=== PATIENT | male | born 1965 | race Caucasian/White ===

== ENCOUNTER → 2020-05-08 | Outpatient (CLI) | payer OTHER ==
--- NOTE | 2020-05-08 16:37 | XR ---
EXAMINATION TYPE: XR lumbar spine with bend/flex DATE OF EXAM: 05/08/2020 CLINICAL HISTORY: Chronic lower back pain. TECHNIQUE: Frontal, lateral neutral/extension/flexion, and oblique images of the lumbar spine are obt ained. COMPARISON: None FINDINGS: There are 5 lumbar type vertebral bodies identified. The lumbar spine shows satisfactory alignment without evidence of acute fracture or dislocation. Vertebral body heights are within normal limits. There is mild disc space narrowing at L4-5 and moderate disc space narrowing at L5-S1. Anter ior osteophytic spurring worst at L5-S1. Multilevel bilateral facet arthropathy, worst at the inferio r lumbar spine. No evidence of spondylolysis or spondylolisthesis. The overlying soft tissue appears unremarkable. 2 mm calcific density paramidline to the left of the L1-2 interspace. IMPRESSION: 1. Multilevel degenerative disc disease and facet arthropathy. 2. No evidence of spondylolisthesis in neutral, flexion, or extension views. No evidence of fracture or subluxation. 3. Left 2 mm calcific density may represent nephrolithiasis.
== END | disposition home or self-care (01) ==
LOC: RADXRYALE 08:54
PROVIDERS: ATTEND Psychiatry & Neurology Pain Medicine
DX: M51.36 Other intervertebral disc degeneration, lumbar region (principal); M47.816 Spondylosis without myelopathy or radiculopathy, lumbar region
CPT/HCPCS: 72114

== ENCOUNTER → 2021-05-13 | Outpatient (CLI) | payer OTHER ==
--- NOTE | 2021-05-14 04:43 | MR ---
EXAMINATION TYPE: MR knee RT wo con DATE OF EXAM: 05/13/2021 COMPARISON: None HISTORY: Tear of medial meniscus, right knee giving out, clicking, pain Multiplanar multiecho imaging of the right knee without contrast. The anterior and posterior cruciate ligaments are intact. There is large horizontal tear through the posterior horn of the medial meniscus. There is oblique vertical tear through the posterior horn of t he lateral meniscus. There is small intrasubstance tear of the anterior horn lateral meniscus. The patella tendon is intact. There is mild knee joint effusion. There is subcutaneous edema over the anterior knee. The patella is intact. The collateral ligaments appear intact. I see no focal bone de struction. IMPRESSION: No evidence of ligamentous tear. There are moderate-sized tears involving the posterior horn medial meniscus and posterior horn of the lateral meniscus. Knee joint effusion. No fracture.
== END | disposition home or self-care (01) ==
LOC: RADMRIMAIN 07:10
PROVIDERS: ATTEND Orthopaedic Surgery
DX: M23.321 Other meniscus derangements, posterior horn of medial meniscus, right knee (principal); M23.351 Other meniscus derangements, posterior horn of lateral meniscus, right knee

== ENCOUNTER 2021-08-04 14:57 | Emergency (ER) | payer OTHER ==
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
[2021-08-04] MEDS ORDERED: HYDROmorphone 0.5 MG/0.5 ML SYRINGE IVP STA (15:33)
[2021-08-04] MEDS ORDERED: SODIUM CHLORIDE 0.9% 1,000 ML IV STA (15:33)
[2021-08-04] MEDS ORDERED: DIPH,PERTUS(ACELL)TETVAC-LF 0.5 ML VIAL IM ONE (15:33)
[2021-08-04 15:58] LABS: Basophils % (A) 0 %; Eosinophils # (A) 0.1 k/uL (0-0.7); Eosinophils % (A) 1 %; HCT 47.6 % (39.0-53.0); HGB 16.2 gm/dL (13.0-17.5); Lymphocytes # (A) 1.2 k/uL (1.0-4.8); Lymphocytes % (A) 9 %; MCH 30.9 pg (25.0-35.0); MCHC 34.1 g/dL (31.0-37.0); MCV 90.6 fL (80.0-100.0); Mean Platelet Volume 6.7; Monocytes # (A) 0.5 k/uL (0-1.0); Monocytes % (A) 4 %; Neutrophils # (A) 10.4 k/uL (1.3-7.7); Neutrophils % (A) 84 %; Platelet Count 239 k/uL (150-450); RBC 5.25 m/uL (4.30-5.90); RDW 13.3 % (11.5-15.5); WBC 12.4 k/uL (3.8-10.6)
[2021-08-04 16:01] LABS: Appearance,Urine Clear (Clear); Bilirubin,Urine Negative (Negative); Blood,Urine Small (Negative); Color,Urine Light Yellow; Glucose,Urine (UA) Negative (Negative); Ketones,Urine Negative (Negative); Leukocyte Esterase,Urine Negative (Negative); Mucus,Urine Rare /hpf; Nitrite,Urine Negative (Negative); PH, Urine 5.5 (5.0-8.0); Protein,Urine Trace (Negative); RBC,Urine <1 /hpf (0-5); Specific Gravity,Urine 1.003 (1.001-1.035); Urobilinogen,Urine <2.0 mg/dL (<2.0); WBC,Urine 2 /hpf (0-5)
[2021-08-04 16:10] LABS: Amphetamine Screen,Urine Not Detected (NotDetected); Barbiturate Screen,Urine Not Detected (NotDetected); Benzodiazepines Screen,Urine Not Detected (NotDetected); Cocaine Screen,Urine Not Detected (NotDetected); Methadone Screen, Urine Not Detected (NotDetected); Opiate Screen,Urine Not Detected (NotDetected); Oxycodone Screen, Urine Not Detected (NotDetected); Phencyclidine Screen,Urine Not Detected (NotDetected); Tricyclic Antidepressant,Urine Not Detected (NotDetected); Urn Cannabinoid Scrn Not Detected (NotDetected)
[2021-08-04 16:14] LABS: ALT 24 U/L (4-49); AST 45 U/L (17-59); African American GFR (CKD) >90 (>60 ml/min/1.73 sqM); Albumin 3.6 g/dL (3.5-5.0); Alkaline Phosphatase 127 U/L (38-126); Anion Gap 13 mmol/L; Blood Urea Nitrogen 11 mg/dL (9-20); Calcium 8.4 mg/dL (8.4-10.2); Carbon Dioxide 16 mmol/L (22-30); Chloride 103 mmol/L (98-107); Glucose 97 mg/dL (74-99); Magnesium 1.9 mg/dL (1.6-2.3); Non-African American GFR(CKD) 87 (>60 ml/min/1.73 sqM); Potassium 4.1 mmol/L (3.5-5.1); Sodium 132 mmol/L (137-145); Total Bilirubin 0.5 mg/dL (0.2-1.3); Total Protein 6.7 g/dL (6.3-8.2)
[2021-08-04 16:18] LABS: INR 0.9 (<1.2); Partial Thromboplastin Time 22.1 sec (22.0-30.0); Prothrombin Time 9.8 sec (9.0-12.0)
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
[2021-08-04 16:28] LABS: Alcohol 135 mg/dL
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
[2021-08-04] MEDS: IOPAMIDOL CONTRAST (ORAL USE) VIAL PO PRN (17:42)
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
[2021-08-04] MEDS ORDERED: BACITRACIN OINT 1 EACH PACKET TOPICAL ONE (17:52)
[2021-08-04] MEDS ORDERED: LIDOCAINE 1% INJ 10MG/ML (20 ML MDV) SQ ONE (17:52)
[2021-08-04] MEDS ORDERED: ACET/COD 300 MG/30 MG STARTER PACK 6 TAB BTL PO STA (18:35)
[2021-08-04 20:10] VITALS: BP 118/80; PULSE 92; RESP 16; TEMP 98.4
== END 2021-08-04 20:09 | disposition home or self-care (01) ==
LOC: EC 14:57
DX: S01.81XA Laceration without foreign body of other part of head, initial encounter (principal); S63.511A Sprain of carpal joint of right wrist, initial encounter; S10.91XA Abrasion of unspecified part of neck, initial encounter; S80.211A Abrasion, right knee, initial encounter; S60.511A Abrasion of right hand, initial encounter; S60.811A Abrasion of right wrist, initial encounter; S50.811A Abrasion of right forearm, initial encounter; M25.512 Pain in left shoulder; R07.89 Other chest pain; F10.10 Alcohol abuse, uncomplicated; R55 Syncope and collapse; I10 Essential (primary) hypertension; F17.200 Nicotine dependence, unspecified, uncomplicated; Z23 Encounter for immunization; Z88.0 Allergy status to penicillin; Z88.2 Allergy status to sulfonamides; Y90.6 Blood alcohol level of 120-199 mg/100 ml; V89.2XXA Person injured in unspecified motor-vehicle accident, traffic, initial encounter; Y92.410 Unspecified street and highway as the place of occurrence of the external cause
CPT/HCPCS: 36415; 93005; 86900; 86901; 80053; 83735; 84484; 85025; 85610; 85730; 86850; 81001; 80306; 80320; 72170; 73030; 73090; 73110; 73130; 73562; 71045; 72125; 70486; 70450; 71260; 74177; 90715; 29125; 12013; 99285; 96374; 96361; 90471; J2001; J1170; Q9967

== ENCOUNTER → 2023-07-30 | Outpatient (CLI) | payer OTHER ==
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
== END ==
LOC: 3 N SLEEP 10:18
PROVIDERS: ATTEND Internal Medicine
DX: G47.33 Obstructive sleep apnea (adult) (pediatric) (principal); M19.90 Unspecified osteoarthritis, unspecified site; E78.5 Hyperlipidemia, unspecified; I10 Essential (primary) hypertension; F17.200 Nicotine dependence, unspecified, uncomplicated; Z98.890 Other specified postprocedural states; Z96.651 Presence of right artificial knee joint; Z88.0 Allergy status to penicillin; Z88.2 Allergy status to sulfonamides; Z88.8 Allergy status to other drugs, medicaments and biological substances; Z79.899 Other long term (current) drug therapy
CPT/HCPCS: 99211

== ENCOUNTER 2023-09-13 19:21 | Outpatient (CLI) | payer OTHER ==
[2023-09-14 22:52] LABS: Urine Alcohol Negative (Negative); Urine Barbiturate Negative (Negative); Urine Cocaine Negative (Negative); Urine Methadone Negative (Negative); Urine Opiates Negative (Negative); Urine Phencyclidine Negative (Negative)
--- NOTE | 2023-09-16 11:28 | P.PCN ---
Description of Procedure: POLYSOMNOGRAPHY REPORT AND MSLT PROCEDURE(S)/DATE(S): Polysomnography 09/13/2023, multiple sleep latency test 09/14/2023. CLINICAL: Patient has been seen in the sleep center for evaluation of obstructive sleep apnea-hypopnea syndrome. Please see my consultation. Sleep study has been done for evaluation of patient breathing during the sleep. PROCEDURE: The standard montage for clinical polysomnography included the electroencephalogram, the electrooculogram, the mentalis surface e lectromyography and Lead II cardiography. The respiratory battery consisted of measurements of nasal/buccal air flow, pressure transducer measurements from nose, thoracic and/or abdominal effort and intercostal surface electromyography. Video monitoring has been done to check for any parasomnia events. Nocturnal oxyhemoglobin saturations were obtained by finger oximetry. Step-woodward titration with positive airway pressure was utilized to control the respiratory events, if necessary. RESULTS: During the diagnostic sleep study sleep efficiency was significantly decreased to 71.9 %. Latency to sleep onset was prolonged to 36.5 min. Sleep architecture showed stage NI increased to 10.6 %, Delta sleep was extremely short 0.3 %, REM sleep was slightly decreased to 18.8 %. Respiratory channel showed 2 obstructive apneas, 0 mixed apneas, 0 central apneas, 2 hypopneas with lowest oxygen level 90%. Total apnea hypopnea index was 0.7. Heart rate was in the range between 70 and 86, average 77. EMG showed 9.8 periodic limb movements per hour with 1.5 micro-arousals per hour. Multiple sleep latency test has been done on the following day, consisted from 5 naps. Patient fell asleep on first 4 naps and did not fell asleep on last nap. Mean sleep latency counting 5 naps 8.6 minutes, counting first 4 naps 5.75 minutes. No sleep onset REM periods have been documented. IMPRESSIONS: 1. No significant respiratory abnormalities have been documented during the sleep study, normal oxygenation during sleep. 2. No significant periodic limb movements have been documented. 3. Multiple sleep latency test confirmed sleepiness differential diagnosis include narcolepsy and idiopathic hypersomnia. 4. Loud snoring have been documented. Please see other impressions from consultation PLAN: 1. I will see patient for follow-up visit to explain results of the tests and recommendations. 2. No driving if feeling sleepiness. 3. Sleep hygiene with regular time in bed for at least 7-1/2 hours. Thank you very much for allowing me to participate in the management of your patient. Sincerely, Sascha Frausto MD, PhD, FAASM. Diplomat of [place] [employer], Sleep Medicine Board by [employer] [facility] [place]
== END 2023-09-14 16:45 | disposition home or self-care (01) ==
LOC: 3 N SLEEP 19:21
PROVIDERS: ATTEND Internal Medicine
DX: G47.33 Obstructive sleep apnea (adult) (pediatric) (principal); G47.10 Hypersomnia, unspecified; Z88.0 Allergy status to penicillin; Z88.2 Allergy status to sulfonamides; Z88.8 Allergy status to other drugs, medicaments and biological substances
CPT/HCPCS: 80306; 95805; 95810

== ENCOUNTER → 2023-10-01 | Outpatient (CLI) | payer OTHER ==
--- NOTE | 2023-10-01 11:14 | P.PN ---
Subjective DATE: 10/01/2023 FOLLOW UP VISIT. Patient returned to sleep center for follow-up visit to discuss results of sleep testing and following plan. I discuss results of sleep study with patient in details. No significant respiratory abnormalities have been documented during the sleep study. Patient has difficulties with falling asleep secondary to restless leg symptoms and sleep study showed severe periodic limb movements 67.9 per hour. Multiple sleep latency test confirmed sleepiness minutes sleep latency counting 5 naps was 8.6 minutes because patient did not fall asleep on last nap and counting for naps was 5.75 minutes. [place] sleepiness scale is increased to 12 per day. Patient continued to feel sleepiness during the day.. MEDICATIONS:1. Atorvastatin 20 mg once a day 2., Flomax 0.4 mg once a day 3. Losartan 80 mg once a day 4. Escitalopram 5 mg once a day During physical exam: GENERAL: A pleasant patient without any distress. VITAL SIGNS: BP 118/77, HR 104, RR 18, weight 101.0, temperature 98.3, oxygen saturation at room air 95. HEENT: PERRLA, EOMI. NECK: Supple. No JVD. LUNGS: Clear to percussion and to auscultation. Good air exchange. No wheezing or rhonchi. HEART: S1, S2 regular. ABDOMEN: Soft and nontender. EXTREMITIES: No clubbing or cyanosis. BELT LOOP CUTTER: Awake, alert, and oriented x3. No focal deficit. Impressions: 1. No significant respiratory abnormalities during the sleep study 2. Severe periodic limb movements have been documented during the sleep test. 3. Loud snoring. 4. Multiple sleep latency test confirmed sleepiness. Differential diagnosis include to narcolepsy and idiopathic hypersomnia. 5. Hypertension. 6. Hyperlipidemia. 7. Arthritis. 8. Status post nasal surgery for nasal septum deviation. 9. Smoker for 60 pack years continue to smoke. 10 status post right knee surgery for meniscus problems Plan: 1. Patient will be started on treatment with Mirapex 0.125 mg 1-2 tablets at bedtime to prevent restless leg symptoms and periodic limb movements. 2. Sleep hygiene with regular time in bed for at least 8 hours. 3. I discussed with patient the possibility to start daytime stimulants to prevent sleepiness, we decided to check what will be effecti treatment of periodic limb movements for sleepiness first. 4. Precautions related to driving. No driving if feel any sleepiness. Patient is aware about civil and criminal liability for unsafe driving, promised to follow recommendations. 5. Follow up visit in 4-6 months or earlier if patient has any problems. Thank you very much for allowing me to participate in the management of your patient. Sascha Frausto MD, PhD, FAASM. Diplomat of [place] [employer], Sleep Medicine Board by [place] [employer] [facility] [place]
== END ==
LOC: 3 N SLEEP 10:29
PROVIDERS: ATTEND Internal Medicine
DX: G47.61 Periodic limb movement disorder (principal); G47.9 Sleep disorder, unspecified; I10 Essential (primary) hypertension; E78.5 Hyperlipidemia, unspecified; F17.210 Nicotine dependence, cigarettes, uncomplicated; M19.90 Unspecified osteoarthritis, unspecified site; Z87.09 Personal history of other diseases of the respiratory system; Z98.890 Other specified postprocedural states; Z88.0 Allergy status to penicillin; Z88.2 Allergy status to sulfonamides; Z88.8 Allergy status to other drugs, medicaments and biological substances
CPT/HCPCS: 99212